=== PATIENT | female | born 1990 | race Caucasian/White ===

== ENCOUNTER 2022-05-19 19:24 | Outpatient (CLI) | payer OTHER | END 2022-05-19 19:25 | disposition critical access hospital (66) | LOC: EMS 19:24 | DX: R56.9 Unspecified convulsions (principal) | CPT/HCPCS: A0425; A0429 ==

== ENCOUNTER 2022-05-19 19:45 | Emergency (ER) | payer OTHER ==
[2022-05-19 20:13] LABS: BASOPHILS # (AUTO) 0.1 10^3/uL (0.0-0.1); BASOPHILS % (AUTO) 1.6 %; EOSINOPHILS % (AUTO) 1.2 %; HCT - HEMATOCRIT 36.2 % (37.0-47.0); HGB - HEMOGLOBIN 12.5 g/dL (12.0-16.0); LYMPHOCYTES # (AUTO) 1.6 10^3/uL (1.5-3.5); LYMPHOCYTES % (AUTO) 50.6 %; MEAN CORPUSCULAR HEMOGLOBIN 31.1 pg (27.0-31.0); MEAN CORPUSCULAR HGB CONC 34.5 g/dL (32.0-36.0); MEAN PLATELET VOLUME 12.2 fL (7.9-10.8); MONOCYTES # (AUTO) 0.4 10^3/uL (0.0-1.0); MONOCYTES % (AUTO) 11.8 %; NEUTROPHILS # (AUTO) 1.1 10^3/uL (1.5-6.6); NEUTROPHILS % (AUTO) 34.5 %; PLT - PLATELET COUNT 77 10^3/uL (130-450); RED BLOOD COUNT 4.02 10^6/uL (4.20-5.40); RED CELL DISTRIBUTION WIDTH 16.1 % (12.0-15.0); WHITE BLOOD COUNT 3.2 x10^3/uL (4.8-10.8)
[2022-05-19] MEDS ORDERED: SODIUM CHLORIDE 0.9% 1,000 ML IV STA (20:13)
[2022-05-19 20:34] LABS: MUDS CUTOFF CONCENTRATIONS CUTOFF CONC BELOW:
[2022-05-19 20:35] LABS: ALBUMIN 3.4 g/dL (3.2-5.5); ALBUMIN/GLOBULIN RATIO 1.1 (1.0-2.2); ALKALINE PHOSPHATASE 108 IU/L (42-121); ALT ALANINE AMINOTRANSFERASE 119 IU/L (10-60); AST ASPARTATE AMINOTRANSFERASE 376 IU/L (10-42); BILIRUBIN,TOTAL 1.8 mg/dL (0.2-1.0); BUN - BLOOD UREA NITROGEN < 5 mg/dL (6-20); CARBON DIOXIDE - CO2 22 mmol/L (21-32); CHLORIDE 94 mmol/L (101-111); CREATININE 0.6 mg/dL (0.4-1.0); ETOH - ETHANOL < 5.0 mg/dL; GFR - MDRD 117 (>89); GLUCOSE 84 mg/dL (70-100); LIPASE 19 U/L (22-51); MAGNESIUM 1.6 mg/dL (1.7-2.8); SODIUM 136 mmol/L (135-145); TOTAL PROTEIN 6.5 g/dL (6.7-8.2)
[2022-05-19 20:36] LABS: GLUCOSE, URINE (UA) NEGATIVE (NEGATIVE); KETONES,URINE (UA) 40 mg/dL (NEGATIVE); LEUKOCYTE ESTERASE, URINE NEGATIVE (NEGATIVE); NITRITE,URINE NEGATIVE (NEGATIVE); OCCULT BLOOD,URINE LARGE (NEGATIVE); PROTEIN,URINE NEGATIVE (NEGATIVE); UROBILINOGEN,URINE 0.2 (NORMAL) E.U./dL (NORMAL)
[2022-05-19] MEDS ORDERED: ONDANSETRON 4 MG/2 ML VIAL IVP STA (20:39)
[2022-05-19 20:40] LABS: CLARITY,URINE HAZY (CLEAR)
[2022-05-19 20:41] LABS: BILIRUBIN,URINE NEGATIVE (NEGATIVE); HCG UR QUAL NEGATIVE; ICTOTEST,URINE NEGATIVE
[2022-05-19 20:49] LABS: AMPHETAMINE SCREEN,URINE NEGATIVE (NEGATIVE); BACTERIA,URINE Moderate /HPF (None Seen); BARBITURATE SCREEN,UR NEGATIVE (NEGATIVE); BENZODIAZEPINES SCREEN, URINE NEGATIVE (NEGATIVE); COCAINE SCREEN URINE NEGATIVE (NEGATIVE); METHADONE SCREEN, URINE NEGATIVE (NEGATIVE); METHAMPHETAMINES SCREEN, URINE NEGATIVE (NEGATIVE); OPIATE SCREEN, URINE NEGATIVE (NEGATIVE); OXYCODONE SCREEN, URINE NEGATIVE (NEGATIVE); PROPOXYPHENE SCREEN, URINE NEGATIVE (NEGATIVE); SQUAMOUS EPITHELIAL CELL,UR MOD Squamous (<= Few); THC CANNABINOID SCREEN, URINE NEGATIVE (NEGATIVE); TRICYCLIC ANTIDEPRESSANT,URINE NEGATIVE (NEGATIVE)
[2022-05-19] MEDS ORDERED: POTASSIUM CHLORIDE 20 MEQ TABLET PO STA (21:09)
[2022-05-19] MEDS ORDERED: ACETAMINOPHEN 325 MG TABLET PO STA (21:09)
--- NOTE | 2022-05-19 21:12 | CT Report ---
PROCEDURE: HEAD WO INDICATIONS: first time seizure TECHNIQUE: Noncontrast 4.5 mm thick angled axial sections acquired from the foramen magnum to the vertex. For r adiation dose reduction, the following was used: automated exposure control, adjustment of mA and/or kV according to patient size. COMPARISON: None. FINDINGS: Image quality: Diagnostic. CSF spaces: Basal cisterns are patent. No extra-axial fluid collections. Ventricles are normal in size and shape. Brain: No intracranial hemorrhage, mass, or mass effect. [place]-white matter interface appears preser alex. Skull and face: Calvarium and visualized facial bones are intact, without suspicious lesions. Sinuses: Visualized sinuses and mastoids are clear. IMPRESSION: 1. No acute intracranial abnormality. Reviewed by: Jarrett Langford MD on 05/19/2022 9:11 PM PST Approved by: Jarrett Langford MD on 05/19/2022 9:11 PM [facility] Station ID: [id number]
[2022-05-19 21:53] VITALS: BP 117/89
--- NOTE | 2022-05-19 22:05 | ED Physician Documentation ---
PD HPI SEIZURE - Stated complaint Stated Complaint: SEIZURE - Chief complaint Chief Complaint: Neuro - History obtained from History obtained from: Patient, Family (Father) - Additional information Additional information: Patient is a 32-year-old female with a history of alcohol abuse presenting for evaluation of a seizure. The patient is visiting from [place] and was sitting in a recliner near her father. When he looked over at her he noticed that she had full body shaking and was not responsive. He later on the floor and turned her to her side and tried to open her mouth but it was clenched. He believes the seizure lasted 2 to 3 minutes. He called 911. She had no head trauma and has not had any recent injuries or falls.He believes that she was postictal for about 3 minutes. She did not have any bladder incontinence and did not bite her tongue. She is currently back at her baseline. She has never had a seizure similar episode before. Patient reports feeling that her eyes were twitching prior to the episodeAnd thought it was because she was using her tablet.She denies recent illness. She has been sober from alcohol for the last month. She does take medications for anxiety and depression but denies drug use.She denies ever having alcohol withdrawal seizures.She denies concerns for . Review of Systems Constitutional: denies: Fever Nose: denies: Congestion Cardiac: denies: Chest pain / pressure Respiratory: denies: Dyspnea GI: denies: Abdominal Pain : denies: Dysuria Musculoskeletal: denies: Neck pain, Back pain Neurologic: reports: Seizure. denies: Head injury PD PAST MEDICAL HISTORY - Past Medical History Past Medical History: Yes Psych: Anxiety - Past Surgical History Past Surgical History: Yes - Present Medications Home Medications: Ambulatory Orders Medication Instructions Recorded Confirmed Dicyclomine HCl 20 mg PO Q6HR PRN 05/19/22 05/19/22 Fluoxetine HCl [Prozac] 40 mg PO DAILY 05/19/22 05/19/22 Gabapentin [Neurontin] 300 mg PO TID 05/19/22 05/19/22 Mirtazapine 15 mg PO DAILY PM 05/19/22 05/19/22 Quetiapine Fumarate 150 mg PO HS 05/19/22 05/19/22 hydrOXYzine HCL [Hydroxyzine HCl] 50 mg PO BID 05/19/22 05/19/22 - Allergies Allergies/Adverse Reactions: Allergies Allergy/AdvReac Type Severity Reaction Status Date / Time Sulfa (Sulfonamide Allergy Unknown Verified 05/19/22 19:55 Antibiotics) - Social History Does the pt smoke?: No Smoking Status: Never smoker Does the pt drink ETOH?: Yes ETOH Use: Beer Does the pt have substance abuse?: No - Immunizations Immunizations are current?: Yes - POLST Patient has POLST: No PD ED PE NORMAL - General General: Alert and oriented X 3, No acute distress, Well developed/nourished - HEENT HEENT: Atraumatic, PERRL, EOMI, Moist mucous membranes, Pharynx benign (No oral injury) - Neck Neck: Supple, no meningeal sign, No bony TTP - Cardiac Cardiac: RRR, Strong equal pulses - Respiratory Respiratory: No respiratory distress, Clear bilaterally - Abdomen Abdomen: Soft, Non tender, Non distended - Derm Derm: Warm and dry - Extremities Extremities: No edema - Neuro Neuro: Alert and oriented X 3, 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, No motor deficit, No sensory deficit, Normal speech Eye Opening: Spontaneous Motor: Obeys Commands Verbal: Oriented GCS Score: 15 Results - Vitals Vitals: Vital Signs - 24 hr 05/19/22 05/19/22 19:49 21:52 Temperature 36.7 C 37.3 C Heart Rate 79 91 Respiratory 19 17 Rate Blood Pressure 119/95 H 117/89 H O2 Saturation 100 100 Oxygen O2 Source Room air - EKG (time done) 2013 Rate: Rate (enter#) (83) Rhythm: NSR Intervals: Other (QTC 490) Ischemia: No: ST elevation c/w ischemia - Labs Labs: Laboratory Tests 05/19/22 05/19/22 05/19/22 19:53 19:53 20:27 WBC 3.2 L RBC 4.02 L Hgb 12.5 Hct 36.2 L MCV 90.0 MCH 31.1 H MCHC 34.5 RDW 16.1 H Plt Count 77 L MPV 12.2 H Neut # (Auto) 1.1 L Lymph # (Auto) 1.6 [place] # (Auto) 0.4 Eos # (Auto) 0.0 Baso # (Auto) 0.1 Absolute Nucleated RBC 0.00 Nucleated RBC % 0.0 Sodium 136 Potassium 3.0 L Chloride 94 L Carbon Dioxide 22 Anion Gap 20.0 H BUN < 5 L Creatinine 0.6 Estimated GFR (MDRD) 117 Glucose 84 Calcium 9.0 Magnesium 1.6 L Total Bilirubin 1.8 H AST 376 H ALT 119 H Alkaline Phosphatase 108 Total Protein 6.5 L Albumin 3.4 Globulin 3.1 Albumin/Globulin Ratio 1.1 Lipase 19 L Urine Color YELLOW Urine Clarity HAZY Urine pH 6.0 Ur Specific [place] 1.010 Urine Protein NEGATIVE Urine Glucose (UA) NEGATIVE Urine Ketones 40 H Urine Occult Blood LARGE H Urine Nitrite NEGATIVE Urine Bilirubin NEGATIVE Urine Urobilinogen 0.2 (NORMAL) Ur Leukocyte Esterase NEGATIVE Urine RBC 6-10 H Urine WBC 4-5 Ur Squamous Epith Cells MOD Squamous H Urine Bacteria Moderate H Ur Microscopic Review INDICATED Urine Culture Comments NOT INDICATED Urine HCG, Qual NEGATIVE Urine Opiates Screen NEGATIVE Ur Oxycodone Screen NEGATIVE Urine Methadone Screen NEGATIVE Ur Propoxyphene Screen NEGATIVE Ur Barbiturates Screen NEGATIVE Ur Tricyclics Screen NEGATIVE Ur Phencyclidine Scrn NEGATIVE Ur Amphetamine Screen NEGATIVE U Methamphetamines Scrn NEGATIVE U Benzodiazepines Scrn NEGATIVE Urine Cocaine Screen NEGATIVE U Cannabinoids Screen NEGATIVE Ethyl Alcohol < 5.0 PD MEDICAL DECISION MAKING - ED course Complexity details: reviewed results, re-evaluated patient, d/w patient, d/w family ED course: Patient with witnessed seizure-like activity at home. No trauma. She has been asymptomatic here and back to her normal neurologic state.Her vital signs are stable.No signs of infection. Her CT scan that does not show a mass or bleeding.She does have thrombocytopeniaAnd abnormal LFTs. Reports a history of alcohol abuse but has been sober for the last month.Her potassium was replaced. Patient has been symptom-free here.Discussed need for close follow-up with PCP with likely neurology referral for first-time seizure. Patient and father advised on strict return precautions. Departure - Departure Disposition: 01 Home, Self Care Clinical Impression: Witnessed seizure-like activity, Thrombocytopenia, Elevated liver function tests Condition: Stable Instructions: ED Seizure New Onset Unk Cause Comments: Your episode this evening is concerning for a seizure. Your CT scan does not show any abnormalities. You did have some slight abnormalities with your labs including low platelets (71,000) And abnormal liver tests. I would recommend close follow-up with your primary care doctor as you likely need a referral to a neurologist for further testing. In the meanwhile I do not recommend you drive (Or operate any heavy machinery) Until you are cleared by your doctor or neurologist. I would also recommend for the time being not swimming or taking baths in case you have another episode such as this. Please continues to stay hydrated. If you have any worsening symptoms or have another seizure please call 911 or return to the emergency department. Discharge Date/Time: 05/19/22 22:15
== END 2022-05-19 22:15 | disposition home or self-care (01) ==
LOC: ED 19:45
DX: R56.9 Unspecified convulsions (principal); D69.6 Thrombocytopenia, unspecified; R94.5 Abnormal results of liver function studies
CPT/HCPCS: 36415; 70450; 80053; 80306; 80320; 81001; 81025; 83690; 83735; 85025; 93005; 96361; 96374; 99283; 99284; A9270; 81003; 87086